=== PATIENT | male | born 1985 | race Caucasian/White ===

== ENCOUNTER 2017-01-29 13:33 | Emergency (ER) | payer SELFPAY ==
[2017-01-29 14:57] VITALS: BP 134/81
--- NOTE | 2017-01-29 15:00 | UC ---
Skin Complaint HPI - HPI Summary HPI Summary: 31 male presents with complaints of ~4 tick bites that he got last week. Patient states he got 2 last Sunday and another 2 last Sunday. Patient is working on a house at a piece of property and got them from there. Patient removed ticks the same day they attached as he checks his skin every night. Had no complication when removing ticks. Entire tick was removed. All were still living. Denies any being engorged as far as he knows besides one. 2 were on his back, one on abdomen and one on lower right leg. Denies rash, bullseye rash, pain and discharge. Denies arthralgia and neurologic deficits. Came here to know if he needed to be treated with any medication as his fiance was worried. - History of Current Complaint Chief Complaint: UCSkin Time Seen by Provider: 01/29/17 14:59 Stated Complaint: MULTIPLE TICK BITES Hx Obtained From: Patient Onset/Duration: Sudden Onset, Lasting Weeks - 1 week ago Skin Exposure Onset/Duration: Weeks Ago - 1 week ago Pain Intensity: 0 Pain Scale Used: 0-10 Numeric Location: Other - back, trunk and right LE Character: Redness Aggravating: Nothing Alleviating: Nothing, Treatment [place]: - ticks were removed without complication, same day Associated Signs & Symptoms: Positive: Rash - redness of area of tick bites Related History: Insect Bite/Sting - tick - Allergy/Home Medications Allergies/Adverse Reactions: Allergies Allergy/AdvReac Type Severity Reaction Status Date / Time No Known Allergies Allergy Verified 01/29/17 14:58 Review of Systems Constitutional: Negative Skin: Other - tick bites x4 ENT: Negative Respiratory: Negative Cardiovascular: Negative Motor: Negative Neurovascular: Negative Musculoskeletal: Negative Neurological: Negative All Other Systems Reviewed And Are Negative: Yes PMH/Surg Hx/FS Hx/Imm Hx - Surgical History Surgical History: Yes Surgery Procedure, Year, and Place: right elbow surgery - Social History Alcohol Use: Rare Substance Use Type: None Smoking Status (MU): Heavy Every Day Tobacco Smoker Type: Cigarettes Amount Used/How Often: 1/2-1 ppd Length of Time of Smoking/Using Tobacco: since age 20 Have You Smoked in the Last Year: Yes Physical Exam Triage Information Reviewed: Yes Appearance: Well-Appearing, No Pain Distress, Well-Nourished Vital Signs: Initial Vital Signs Temp 99.2 F 01/29/17 14:51 Pulse 98 01/29/17 14:51 Resp 16 01/29/17 14:51 BP 134/81 01/29/17 14:51 Pulse Ox 98 01/29/17 14:51 Vital Signs Reviewed: Yes Eyes: Positive: Conjunctiva Clear ENT: Positive: Normal ENT inspection, Hearing grossly normal Neck: Positive: Supple, Nontender Respiratory: Positive: Chest non-tender, Lungs clear, Normal breath sounds, No respiratory distress, No accessory muscle use Cardiovascular: Positive: RRR, No Murmur, Pulses Normal Abdomen Description: Positive: Nontender, No Organomegaly, Soft Bowel Sounds: Positive: Present Musculoskeletal: Positive: Strength Intact, ROM Intact, No Edema Neurological Exam: Normal Neurological: Positive: Alert, Muscle Tone Normal Skin: Positive: Other - 4 healing bite wounds from ticks, very minimal erythema , very small in size, scabbed over. 2 hardly visible. 2 on back left shoulder area, one right abdomen and one right LE. non erythema migrans, discharge or swelling. UC Physical Exam Vital Signs On Initial Exam: Initial Vitals Temp Pulse Resp BP Pulse Ox 99.2 F 98 16 134/81 98 01/29/17 14:51 01/29/17 14:51 01/29/17 14:51 01/29/17 14:51 01/29/17 14:51 - Neurological Exam Neurological: Normal - GCS 15, Sensory/Motor Intact, Alert, Oriented to Person Place, Time, CN Intact II-III, Reflexes Intact, NV Bundle Intact Distally, Normal Gait, Finger to Nose - normal, Facial Symmetry, Speech Normal Course/Dx - Course Course Of Treatment: patient educated on lyme disease and tick bites. also educated on treatment for tick bites. reassured at this time that no treatment is necessary as bites occurred over a week ago. aware of signs and symptoms to watch out for. encouraged to watch bites and wear bug spray and clothing to try and prevent future bites. follow up with pcp. - Differential Diagnoses - Skin Complaint Differential Diagnoses: Cellulitis, Contact Dermatitis, Poison [place], Tick Born Illness, Tinea, Urticaria - Diagnoses Provider Diagnoses: tick bites Discharge - Discharge Plan Condition: Good Disposition: HOME Patient Education Materials: Tick Bite (ED), Lyme Disease (ED) Referrals: Shlomo Hyde MD [Medical Doctor] - Additional Instructions: Next time you have a tick bite, come as soon after removing tick if you would like prophylactic antibiotic to prevent lyme disease. If you develop signs and symptoms of bulls eye rash or lyme disease symptoms ( joint pain, headache, neuro deficits) please seek medical attention promptly. Follow up with primary care provider. Be sure to keep an eye out on your tick bites for bulls eye rash over the next couple of weeks. Wear clothing and bug spray with DEET when going outside. Make sure you check your skin after being outside daily. Keep bites clean and dry.
== END 2017-01-29 15:30 | disposition home or self-care (01) ==
LOC: UCCORT 13:33
DX: S20.462A Insect bite (nonvenomous) of left back wall of thorax, initial encounter (principal); S30.861A Insect bite (nonvenomous) of abdominal wall, initial encounter; S80.861A Insect bite (nonvenomous), right lower leg, initial encounter; W57.XXXA Bitten or stung by nonvenomous insect and other nonvenomous arthropods, initial encounter; Y93.H3 Activity, building and construction; Y92.009 Unspecified place in unspecified non-institutional (private) residence as the place of occurrence of the external cause; F17.210 Nicotine dependence, cigarettes, uncomplicated
CPT/HCPCS: 99211; G0463

== ENCOUNTER 2019-06-19 14:34 | Emergency (ER) | payer SELFPAY ==
[2019-06-19 14:45] VITALS: BP 134/78
[2019-06-19] MEDS ORDERED: Penicillin G Benzathine 2.4MU* 2,400,000 UNITS/4 ML SYR IM ONE (15:09)
--- NOTE | 2019-06-19 15:19 | UC ---
UC General HPI - HPI Summary HPI Summary: 33-year-old male comes in to get checked for syphilis. Patient received a phone call yesterday from the [facility] telling him a prior sexual partner was positive for syphilis and that the patient needed testing for syphilis and examination and treatment for syphilis. Patient denies any symptoms. Denied any genital sores. No dysuria no fevers no chills no abdominal pain feels well. - History of Current Complaint Chief Complaint: UCGU Stated Complaint: STD TESTING Time Seen by Provider: 06/19/19 14:57 Pain Intensity: 0 - Allergy/Home Medications Allergies/Adverse Reactions: Allergies Allergy/AdvReac Type Severity Reaction Status Date / Time No Known Allergies Allergy Verified 06/19/19 14:45 PMH/Surg Hx/FS Hx/Imm Hx Previously Healthy: Yes - Surgical History Surgical History: Yes Surgery Procedure, Year, and Place: right elbow surgery - Family History Known Family History: Positive: Non-Contributory - Social History Alcohol Use: Rare Substance Use Type: None Smoking Status (MU): Heavy Every Day Tobacco Smoker Type: Cigarettes Amount Used/How Often: 1/2-1 ppd Length of Time of Smoking/Using Tobacco: since age 20 Have You Smoked in the Last Year: Yes Review of Systems All Other Systems Reviewed And Are Negative: Yes Constitutional: Positive: Negative Skin: Positive: Negative Eyes: Positive: Negative ENT: Positive: Negative Respiratory: Positive: Negative Cardiovascular: Positive: Negative Gastrointestinal: Positive: Negative Genitourinary: Positive: Negative Motor: Positive: Negative Neurovascular: Positive: Negative Musculoskeletal: Positive: Negative Neurological: Positive: Negative Psychological: Positive: Negative Is Patient Immunocompromised?: No Physical Exam Triage Information Reviewed: Yes Appearance: Well-Appearing, No Pain Distress, Well-Nourished Vital Signs: Initial Vital Signs Temp 99.2 F 06/19/19 14:40 Pulse 68 06/19/19 14:40 Resp 18 06/19/19 14:40 BP 134/78 06/19/19 14:40 Pulse Ox 98 06/19/19 14:40 Vital Signs Reviewed: Yes Eye Exam: Normal Eyes: Positive: Conjunctiva Clear ENT: Positive: Pharynx normal Neck: Positive: Supple Respiratory: Positive: Lungs clear, Normal breath sounds, No respiratory distress Cardiovascular: Positive: RRR Abdomen Description: Positive: Nontender Bowel Sounds: Positive: Present Male Genital Exam: Positive: Normal Genitalia, Other - On gentle exam no lesions noted. No lymphadenopathy appreciated. Testicles nontender to palpation normal size and shape and axis. Course/Dx - Course Course Of Treatment: In clinic RPR and hepatitis screen and HIV blood work drawn. Results pending. Urine gonorrhea chlamydia also pending. Because patient is asymptomatic will not treat for gonorrhea chlamydia at this time. In clinic patient was given pen G benzathine 2.4 million units IM. Further treatment based on lab results. Patient should seek medical attention has any symptoms or if any of his results results are positive. - Diagnoses Provider Diagnosis: Syphilis contact, untreated Discharge ED - Sign-Out/Discharge Documenting (check all that apply): Patient Departure All imaging exams completed and their final reports reviewed: No Studies - Discharge Plan Condition: Stable Disposition: HOME Patient Education Materials: Syphilis (ED), Sexually Transmitted Diseases (ED) Referrals: [facility] [Outside] [facility] [Outside] Additional Instructions: FOLLOW UP WITH YOUR DOCTOR, HERE OR [facility] WITH ANY STI SYMPTOMS OR QUESTIONS OR CONCERNS. GET RECHECKED SOONER IF YOUR CONDITION WORSENS OR ANY QUESTIONS OR CONCERNS. - Billing Disposition and Condition Condition: STABLE Disposition: Home
[2019-06-19 20:05] LABS: Hepatitis B Surface Antigen Nonreactive (Nonreactive)
[2019-06-19 20:22] LABS: Hepatitis C Antibody Negative (Negative)
[2019-06-19 22:34] LABS: HIV 4th Generation Nonreactive (Nonreactive)
[2019-06-20 12:49] LABS: Chlamydia trachomatis NAA Negative (Negative); Neisseria gonorrhoeae (GC) NAA Negative (Negative)
== END 2019-06-19 15:45 | disposition home or self-care (01) ==
LOC: UCEAST 14:34
DX: Z20.2 Contact with and (suspected) exposure to infections with a predominantly sexual mode of transmission (principal); Z11.3 Encounter for screening for infections with a predominantly sexual mode of transmission; F17.210 Nicotine dependence, cigarettes, uncomplicated
CPT/HCPCS: 36415; 80074; 86780; 87389; 87491; 87591; 90471; 99211; G0463; J0561

== ENCOUNTER 2019-12-09 09:25 | Emergency (ER) | payer SELFPAY ==
[2019-12-09 09:47] VITALS: BP 125/86
--- NOTE | 2019-12-09 10:10 | UC ---
Throat Pain/Nasal Rob HPI - HPI Summary HPI Summary: sore throat x 3 days pain is 6 out 10 , getting worse for the past day dry cough, nasal congestion, pnd, fever, chills / body aches - History of Current Complaint Chief Complaint: UCGeneralIllness Stated Complaint: SORE THOART Time Seen by Provider: 12/09/19 10:04 Hx Obtained From: Patient Onset/Duration: Gradual Onset, Lasting Days - 3, Still Present Severity: Moderate Pain Intensity: 3 Cough: Nonproductive Associated Signs & Symptoms: Positive: Nasal Discharge, Fever. Negative: Sinus Discomfort - Allergies/Home Medications Allergies/Adverse Reactions: Allergies Allergy/AdvReac Type Severity Reaction Status Date / Time No Known Allergies Allergy Verified 12/09/19 09:47 Home Medications: Home Medications NK [No Home Medications Reported] 03/08/15 [History Confirmed 12/09/19] PMH/Surg Hx/FS Hx/Imm Hx Previously Healthy: Yes - Surgical History Surgical History: Yes Surgery Procedure, Year, and Place: right elbow surgery - Family History Known Family History: Positive: Non-Contributory - Social History Alcohol Use: Rare Substance Use Type: None Smoking Status (MU): Heavy Every Day Tobacco Smoker Type: eCigarettes Amount Used/How Often: puff every couple of hours Length of Time of Smoking/Using Tobacco: since age 20 Have You Smoked in the Last Year: Yes Review of Systems All Other Systems Reviewed And Are Negative: Yes Constitutional: Positive: Fever, Chills, Fatigue Skin: Positive: Negative Eyes: Positive: Negative ENT: Positive: Sore Throat, Nasal Discharge Respiratory: Positive: Cough Gastrointestinal: Negative: Abdominal Pain, Vomiting, Nausea Is Patient Immunocompromised?: No Physical Exam Triage Information Reviewed: Yes Appearance: Well-Appearing, No Pain Distress, Well-Nourished Vital Signs: Initial Vital Signs Temp 98.5 F 12/09/19 09:42 Pulse 101 12/09/19 09:42 Resp 18 12/09/19 09:42 BP 125/86 12/09/19 09:42 Pulse Ox 99 12/09/19 09:42 Vital Signs Reviewed: Yes Eye Exam: Normal Eyes: Positive: Conjunctiva Clear ENT: Positive: Normal ENT inspection, Hearing grossly normal, Pharyngeal erythema, Nasal congestion, Nasal drainage, TMs normal. Negative: TM bulging, TM dull, TM red, Tonsillar swelling, Tonsillar exudate Neck: Positive: Supple, Nontender, No Lymphadenopathy Respiratory: Positive: Chest non-tender, Lungs clear, Normal breath sounds Cardiovascular: Positive: No Murmur, Tachycardia Abdominal Exam: Normal Throat Pain/Nasal Course/Dx - Differential Dx/Diagnosis Provider Diagnosis: Pharyngitis Discharge ED - Sign-Out/Discharge Documenting (check all that apply): Patient Departure All imaging exams completed and their final reports reviewed: No Studies - Discharge Plan Condition: Stable Disposition: HOME Patient Education Materials: Pharyngitis (ED) Forms: *Work Release Referrals: No Primary Care Phys,NOPCP [Primary Care Provider] - If Needed - Billing Disposition and Condition Condition: STABLE Disposition: Home
== END 2019-12-09 10:38 | disposition home or self-care (01) ==
LOC: UCCORT 09:25
DX: J02.9 Acute pharyngitis, unspecified (principal); F17.290 Nicotine dependence, other tobacco product, uncomplicated; R05 Cough; R09.89 Other specified symptoms and signs involving the circulatory and respiratory systems; R53.83 Other fatigue; R68.83 Chills (without fever)
CPT/HCPCS: 87651; 99211; G0463